=== PATIENT | male | born 1985 | race Two or more races ===

== ENCOUNTER 2018-12-24 15:36 | Inpatient (IN) | payer BC ==
[~2018-12-24] VITALS: Ht 177.8 cm; Wt 85.7 kg
--- NOTE | 2018-12-24 16:00 | NUR ---
CAME IN FOR FEVER THAT STARTED LAST NIGHT, L ABDOMINAL PAIN RADIATING TO BACK, AND GENERALIZED PAIN. TO ER BED 2, HOOKED TO MONITOR, CHANGED TO GOWN, PROVIDED W WARM BLANKET, PT AOX4 , NOT IN DISTRESS, AWAITING MD TIRADO
--- NOTE | 2018-12-24 16:12 | NUR ---
DR WAYNE AT BEDSIDE
[2018-12-24] MEDS ORDERED: KETOROLAC TROMETHAMINE INJ 30 MG/ML VIAL ONE (16:21)
[2018-12-24] MEDS ORDERED: ONDANSETRON HCL/PF 4 MG/2 ML VIAL ONE (16:21)
[2018-12-24] MEDS ORDERED: KETOROLAC TROMETHAMINE INJ 30 MG/ML VIAL IV ONE (16:30)
[2018-12-24] MEDS ORDERED: IV NS 0.9% 1,000 ML BAG IV ONE (16:30)
[2018-12-24] MEDS ORDERED: ONDANSETRON HCL/PF 4 MG/2 ML VIAL IVP ONE (16:30)
[2018-12-24 16:38] LABS: BASOPHILS # (AUTO) 0.2 /CMM (0.0-0.2); BASOPHILS % (AUTO) 1.7 % (0.0-2.0); HEMATOCRIT 41 % (39-51); HEMOGLOBIN 13.7 g/dL (13.5-17.5); LYMPHOCYTES # (AUTO) 1.3 /CMM (0.8-4.8); LYMPHOCYTES % (AUTO) 9.2 % (20.0-44.0); MEAN CORPUSCULAR HGB CONC 33 g/dl (31.0-36.0); MEAN CORPUSCULAR VOLUME 87 fL (80-96); MONOCYTES # (AUTO) 0.9 /CMM (0.1-1.30); MONOCYTES % (AUTO) 6.1 % (2.0-12.0); PLATELET COUNT (AUTO) 235 /CMM (150-450); RED BLOOD CELL COUNT(AUTO) 4.74 MIL/uL (4.5-6.0); WHITE BLOOD COUNT (AUTO) 14.5 K/uL (4.3-11.0)
[2018-12-24 16:42] LABS: CALCIUM, SERUM 8.9 mg/dL (8.5-10.1); CREATININE 1.3 mg/dL (0.6-1.3); POTASSIUM 3.8 mmol/L (3.5-5.1)
[2018-12-24 16:53] LABS: APPEARANCE,URINE Clear (CLEAR); BILIRUBIN,URINE SMALL (NEGATIVE); BLOOD, URINE Trace-intact Ery/uL (NEGATIVE); COLOR,URINE Amber (YELLOW); KETONES,URINE 15 (NEGATIVE); LEUKOCYTE ESTERASE ,URINE Negative (NEGATIVE); NITRITE, URINE Negative (NEGATIVE); PROTEIN,URINE 30 mg/dl (NEGATIVE); UGLUCOSE Negative (NEGATIVE)
[2018-12-24 16:54] LABS: ALBUMIN 3.7 g/dL (3.4-5.0); BILIRUBIN,DIRECT 0.3 mg/dL (0.0-0.2); BILIRUBIN,TOTAL 1.9 mg/dL (0.2-1.0)
--- NOTE | 2018-12-24 16:56 | NUR ---
PT REFUSED CT SCAN. MADE MD AWARE
[2018-12-24 17:08] LABS: BACTERIA,URINE Rare /HPF (None Seen); RBC,URINE 0-3 /HPF (0-2); SQUAMOUS EPITHELIAL CELL,UR Rare /HPF (None Seen); WBC,URINE 0-2 /HPF (0-3)
[2018-12-24 17:09] LABS: YEAST,URINE Few /HPF (None Seen)
--- NOTE | 2018-12-24 17:11 | NUR ---
Vance chawla in [facility] - 12/24/18 at 1718 by ARIK Patient discharged to home in stable condition. Written and verbal after care instructions given. Patient verbalizes understanding of instruction.
[2018-12-24] MEDS ORDERED: PIPERACILLIN /TAZOBACTAM 3.375 G in IV D5W 50 ML IV ONE (18:00)
--- NOTE | 2018-12-24 18:01 | NUR ---
CALLED TYSHAWN CONNOR NP PAGED.
--- NOTE | 2018-12-24 18:05 | NUR ---
CALLED NURSING SUP FOR BED
[2018-12-24] MEDS ORDERED: PIPERACILLIN /TAZOBACTAM 3.375 G VIAL IV ONE (18:08)
--- NOTE | 2018-12-24 18:28 | NUR ---
[facility] [facility]
--- NOTE | 2018-12-24 18:53 | NUR ---
REPORT GIVEN TO LATASHA SPAULDING OF MED-SURG
[2018-12-24] MEDS ORDERED: IV NS 0.9% 1,000 ML IV PRN (18:54)
[2018-12-24] MEDS ORDERED: ONDANSETRON HCL/PF 4 MG/2 ML VIAL IVP PRN (19:00)
[2018-12-24] MEDS ORDERED: MAG HYDROX/AL HYDROX/SIMETH 30 ML UDC PO PRN (19:00)
[2018-12-24] MEDS ORDERED: MAGNESIUM HYDROXIDE 30 ML UDC PO PRN (19:00)
[2018-12-24] MEDS ORDERED: ACETAMINOPHEN 325 MG TABLET PO PRN (19:00)
[2018-12-24] MEDS ORDERED: HYDROCODONE/APAP 5/325MG 1 EACH TABLET PO PRN (19:00)
[2018-12-24] MEDS ORDERED: MORPHINE SULFATE INJ 2 MG/ML DISP.SYRIN IV PRN (19:00)
[2018-12-24] MEDS ORDERED: Z GUARD REMEDY 2 OZ OINT TP PRN (19:00)
--- NOTE | 2018-12-24 19:00 | NUR ---
WHEELED OUT VIA GURNEY BY TECH IN STABLE CONDITION TO ROOM 328-2 [facility] UNIT. VITAL SIGNS STABLE. PT AOx4, AMBULATORY, SKIN CLEAR AND INTACT. NOT IN DISTRESS. ADMITTING DX: ABDOMINAL PAIN ADMITTING MD: TYSHAWN REPORT GIVEN TO LATASHA RN OF MS UNIT MRSA DONE MED RECONCILIATION DONE.
[2018-12-24 19:30] VITALS: BP 122/60
--- NOTE | 2018-12-24 19:45 | NUR ---
MS FIELD CROP FARMER NOTES RECEIVED FROM ER THIS 33 YO MALE,A/O X4,PER KAREN ,WITH CHIEF COMPLAINTS OF ON AND OFF ABDOMINAL PAIN STARTED 3-4 MONTHS AGO,WITH NAUSEA AND VOMITING.NO SKIN ISSUES,AMBULATORY,SALINE LOCK LEFT AC INTACT AND PATENT,INFUSING NS AT 75ML/HR RATE.DENIES ABDOMINAL PAIN AT THE MOMENT.NO NAUSEA.AFEBRILE.CALL LIGHT IN REACH.NEEDS ANTICIPATED.
[2018-12-24 20:00] VITALS: BP 122/60
--- NOTE | 2018-12-24 20:00 | NUR ---
MS RN NOTES GOT ORDERS FROM DR VILLAGRAN,PATIENT INSTRUCTED NPO ORDERED.
--- NOTE | 2018-12-24 20:27 | NUR ---
TEXTED DR. CHEN FOR MRI APPROVAL.
--- NOTE | 2018-12-24 20:35 | NUR ---
FOR MRI PATIENT HAS TO BE NPO AFTER MIDNIGHT.MRI WILL BE DONE TOMORROW AT 8.30 AM.NURSE IS AWARE OF IT.
[2018-12-24] MEDS: FAMOTIDINE (20 MG) 20 MG TABLET PO SCH (21:00)
[2018-12-25] MEDS: PIPERACILLIN /TAZOBACTAM 3.375 G in IV D5W 50 ML IV SCH ×2 (02:00→08:30)
[2018-12-25 06:20] LABS: BASOPHILS % (AUTO) 0.3 % (0.0-2.0); EOSINOPHILS % (AUTO) 1.3 % (0.0-6.0); HEMATOCRIT 41 % (39-51); HEMOGLOBIN 13.6 g/dL (13.5-17.5); LYMPHOCYTES # (AUTO) 1.8 /CMM (0.8-4.8); MEAN CORPUSCULAR HGB CONC 33 g/dl (31.0-36.0); MEAN CORPUSCULAR VOLUME 88 fL (80-96); MONOCYTES % (AUTO) 8.9 % (2.0-12.0); NEUTROPHILS # (AUTO) 7.8 /CMM (1.8-8.9); NEUTROPHILS % (AUTO) 72.5 % (43.0-81.0); PLATELET COUNT (AUTO) 216 /CMM (150-450); RED BLOOD CELL COUNT(AUTO) 4.64 MIL/uL (4.5-6.0); WHITE BLOOD COUNT (AUTO) 10.8 K/uL (4.3-11.0)
[2018-12-25 06:40] LABS: ALBUMIN 3.2 g/dL (3.4-5.0); BILIRUBIN,DIRECT 0.2 mg/dL (0.0-0.2); BILIRUBIN,TOTAL 2.2 mg/dL (0.2-1.0); CALCIUM, SERUM 8.4 mg/dL (8.5-10.1); CREATININE 1.3 mg/dL (0.6-1.3); MAGNESIUM 2.2 mg/dL (1.8-2.4); PHOSPHORUS 3.4 mg/dL (2.5-4.9); POTASSIUM 4.4 mmol/L (3.5-5.1); TOTAL PROTEIN, SERUM 6.4 g/dL (6.4-8.2)
[2018-12-25 06:48] LABS: THYROID STIMULATING HORMONE 1.336 uIU/mL (0.358-3.74)
--- NOTE | 2018-12-25 07:39 | NUR ---
MS RN NOTES RECEIVED PATIENT IN BED, ALERT AND AWAKE, ORIENTED X4. HOB ELEVATED. NO SOB OBSERVED. NPO AT THIS TIME. ON IV NS INFUSING @75ML/HR WITH LEFT AC #20 INTACT AND PATENT HORTENCIA WELL WITHOUT S/S OF COMPLICATIONS. BED IN LOWEST POSITION. CALL LIGHT WITHIN REACH. BED ALARM ON. ABLE TO VERBALIZE NEEDS. DENIES ANY C/O PAIN NOR DISCOMFORT AT THIS TIME.
--- NOTE | 2018-12-25 07:41 | NUR ---
MS RN NOTES NO SIGNIFICANT CHANGE IN STATUS.KEPT NPO FOR MRI ABDOMEN/PELVIS WITH OUT CONTRAST,CHECKLIST DONE.IVF IN PROGRESS.ENDORSED TO BRYANT SPAULDING FOR MANASA.
[2018-12-25 08:00] VITALS: BP 121/67
[2018-12-25] MEDS: FAMOTIDINE (20 MG) 20 MG TABLET PO SCH ×2 (08:30→21:14)
--- NOTE | 2018-12-25 08:40 | NUR ---
MS RN NOTES PATIENT PICKED UP BY [facility] AND TRANSPORTED PATIENT VIA WHEELCHAIR FOR MRI OF ABDOMEN/PELVIS WITHOUT CONTRAST. IV ZOSYN INFUSION HELD. PATIENT LEFT IN STABLE CONDITION.
--- NOTE | 2018-12-25 11:00 | NUR ---
MS RN NOTES PATIENT RETURNED FROM MRI. RESTING COMFORTABLY IN BED.
[2018-12-25] MEDS: PIPERACILLIN /TAZOBACTAM 3.375 G in IV D5W 100 ML IV SCH ×2 (13:48→22:05)
[2018-12-25 16:00] VITALS: BP 120/74
[2018-12-25] MEDS ORDERED: DICYCLOMINE HCL 10 MG CAPSULE PO PRN (17:30)
[2018-12-25] MEDS ORDERED: SIMETHICONE SUSP 40 MG/0.6 ML BOTTLE PO PRN (18:00)
--- NOTE | 2018-12-25 19:45 | NUR ---
MS RN NOTES RECEIVED RESTING COMFORTABLY ON BED,BREATHING REGULAR,NOT IN ANY FORM OF DISTRESS.IVF NS AT 75ML/HR RATE IN PROGRESS.DENIES ABDOMINAL PAIN.CALL LIGHT IN REACH,NEEDS ANTICIPATED.
--- NOTE | 2018-12-25 19:48 | NUR ---
MS RN CLOSING NOTES PATIENT IN BED, WATCHING TV. ALERT AND AWAKE, ORIENTED X4. HOB ELEVATED. NO SOB OBSERVED. ATE DINNER, HORTENCIA WELL. ON IV NS INFUSING @75ML/HR WITH LEFT AC #20 INTACT AND PATENT HORTENCIA WELL WITHOUT S/S OF COMPLICATIONS. BED IN LOWEST POSITION. CALL LIGHT WITHIN REACH. BED ALARM ON. ABLE TO VERBALIZE NEEDS. DENIES ANY C/O PAIN NOR DISCOMFORT AT THIS TIME.
[2018-12-25 20:00] VITALS: BP 103/50
[2018-12-25 21:05] LABS: OCCULT BLOOD STOOL NEGATIVE (NEGATIVE)
[2018-12-26] MEDS: PIPERACILLIN /TAZOBACTAM 3.375 G in IV D5W 100 ML IV SCH (05:47)
--- NOTE | 2018-12-26 06:34 | NUR ---
MS RN NOTES SLEEP WELL AT NIGHT,DENIES ABDOMINAL PAIN,IV ABX INFUSING OVER 4 HOURS.POSSIBLE D/C TODAY.IN NO ACUTE DISTRESS.WILL ENDORSE TO DAY NURSE FOR MANASA.
--- NOTE | 2018-12-26 07:15 | NUR ---
MS RN OPENING NOTES RECEIVED PT IN BED, AWAKE, A/O X4.TOLERATING RA, WITH NO ACUTE RESPIRATORY DISTRESS NOTED.PT DENIES ANY PAIN OR DISCOMFORT AT THIS TIME. PT CONCERNED ABOUT GETTING DISCHARGED TODAY AND THE NAMED OF 2DOCTORS/SPECIALIST TO FOLLOW UP AFTER DISCHARGE. PT TO UPDATE REGARDING PLAN OF DISCHARGE AFTER MD'S MORNING ROUNDS. PIV TO RFA G20 WITH NS AT 75ML/HR WITH PB IV ZOSYN RUNNING AT THIS TIME, INATCT AND INFUSING WELL. PT KEPT COMFORTABLE. PT'S BED IN LOWEST, LOCKED POSITION WITH SR X2. CALL LIGHT KEPT WITHIN REACH WILL CONTINUE PLAN OF CARE.
[2018-12-26 07:20] LABS: BASOPHILS # (AUTO) 0.1 /CMM (0.0-0.2); BASOPHILS % (AUTO) 1.2 % (0.0-2.0); EOSINOPHILS % (AUTO) 2.6 % (0.0-6.0); HEMATOCRIT 42 % (39-51); HEMOGLOBIN 14.1 g/dL (13.5-17.5); LYMPHOCYTES # (AUTO) 1.3 /CMM (0.8-4.8); LYMPHOCYTES % (AUTO) 17.3 % (20.0-44.0); MEAN CORPUSCULAR HGB CONC 33 g/dl (31.0-36.0); MEAN CORPUSCULAR VOLUME 88 fL (80-96); MONOCYTES # (AUTO) 0.6 /CMM (0.1-1.30); MONOCYTES % (AUTO) 8.3 % (2.0-12.0); NEUTROPHILS # (AUTO) 5.3 /CMM (1.8-8.9); NEUTROPHILS % (AUTO) 70.6 % (43.0-81.0); PLATELET COUNT (AUTO) 223 /CMM (150-450); WHITE BLOOD COUNT (AUTO) 7.5 K/uL (4.3-11.0)
[2018-12-26 07:52] LABS: ALBUMIN 3.3 g/dL (3.4-5.0); BILIRUBIN,DIRECT 0.2 mg/dL (0.0-0.2); BILIRUBIN,TOTAL 0.9 mg/dL (0.2-1.0); CALCIUM, SERUM 9.1 mg/dL (8.5-10.1); CREATININE 1.3 mg/dL (0.6-1.3); POTASSIUM 4.7 mmol/L (3.5-5.1); TOTAL PROTEIN, SERUM 6.9 g/dL (6.4-8.2)
[2018-12-26 08:00] VITALS: BP 115/59
[2018-12-26] MEDS: FAMOTIDINE (20 MG) 20 MG TABLET PO SCH (09:00)
[2018-12-26] MEDS ORDERED: METR500T PO (10:26)
[2018-12-26] MEDS ORDERED: LEVO750T46 PO (10:26)
--- NOTE | 2018-12-26 11:53 | NUR ---
MS SPAULDINGFOREST FIRE WARDEN NOTES PT TO DISCHARGE HOME. PT A/O X4 AND AMBULATORY. TOLERATING RA, WITH NO ACUTE RESPIRATORY DISTRESS NOTED. PT DENIES ANY PAIN OR DISCOMFORT AT THE TIME OF DISCHARGE. PRESCRIPTION OF ANTIBIOTICS AND F/U MD INFORMATION GIVEN TO PT. PT REVIEWED AND SIGNED DISCHARGE INSTRUCTIONS AND INVENTORY LIST. ALL BELONGINGS WITH THE PT. PIV TO RFA REMOVED AND APPLIED DRY DRESSING. SKIN INTACT, NO PICTURES TAKEN AND FILED. ALL NEEDS AND CARE ATTENDED. FOOD SERVICE WORKER/CN AND CN/MANINDER AWARE OF DISCHARGE. PT LEFT THE UNIT AT 1154, ESCORTED BY FRANCISCO TO THE LOBBY. Addendum: 12/26/18 at 1159 by AARON NAYAK RN PT LEFT THE UNIT AT 1145 NOT 1154.
[2018-12-30 13:10] LABS: *ANCANTIMYELOPEROXIDASE (MPO) <9.0 U/mL (0.0-9.0); *ANCANTIPROTEINASE 3 (PR-3) AB <3.5 U/mL (0.0-3.5)
[2019-01-01 15:06] LABS: *ANCA ATYPICAL p-ANCA <1:20 titer (Neg:<1:20); *ANCA CYTOPLASMIC (C-ANCA) <1:20 titer (Neg:<1:20); *ANCA PERINUCLEAR (P-ANCA) <1:20 titer (Neg:<1:20)
== END 2018-12-26 11:40 | disposition home or self-care (01) | DRG 872 ==
LOC: ER 15:44 → MED 18:48
PROVIDERS: ADMIT Nurse Practitioner Acute Care; ATTEND Nurse Practitioner Acute Care
DX: A41.9 Sepsis, unspecified organism (principal); A09 Infectious gastroenteritis and colitis, unspecified; D72.829 Elevated white blood cell count, unspecified; E80.6 Other disorders of bilirubin metabolism; F12.90 Cannabis use, unspecified, uncomplicated; F10.10 Alcohol abuse, uncomplicated; Y90.0 Blood alcohol level of less than 20 mg/100 ml; K58.0 Irritable bowel syndrome with diarrhea
CPT/HCPCS: 36415; 71045-TC; 72195-TC; 74181-TC; 76705-TC; 80048-TC; 80061-TC; 80074; 80076-TC; 80305; 81000-TC; 82272-TC; 83520; 83605-TC; 83690-TC; 83735-TC; 84100-TC; 84443-TC; 85025-TC; 85652-TC; 86140-TC; 86256; 87040-TC; 87081-TC; G0378; G0480; J1885; J2405; J2543; J7030; J7060

== ENCOUNTER 2019-04-01 17:09 | Emergency (ER) | payer BC ==
[~2019-04-01] VITALS: Ht 180.3 cm; Wt 83.9 kg
[~2019-04-01 17:09] MED LIST: LEVO750T46 PO; METR500T PO
--- NOTE | 2019-04-01 17:30 | NUR ---
patient arrived at unit ambulatory. a/o x 3, no acute distress. with c/o constipation, anal pain, burning/itching on and off x 3 months. patient accompanied to bed and connected to monitor. will monitor accordingly
--- NOTE | 2019-04-01 18:00 | NUR ---
dr terrell at bedside. rectal swab done. specimen sent to lab
--- NOTE | 2019-04-01 18:11 | NUR ---
Lab notified regarding rectal swab specimen, per Lab, Chlamydia/Gonorrhea needs to be ordered under misc orders, and to add test code [id number]. dr Song made aware and verbalized she will add it in the order
[2019-04-01] MEDS ORDERED: AZITHROMYCIN 250 MG TABLET PO ONE (18:30)
[2019-04-01] MEDS ORDERED: CEFTRIAXONE 500 MG VIAL IM ONE (18:30)
[2019-04-01] MEDS ORDERED: CEFTRIAXONE 500 MG VIAL ONE (18:33)
[2019-04-01] MEDS ORDERED: AZITHROMYCIN 250 MG TABLET ONE (18:33)
[2019-04-01] MEDS ORDERED: LIDOCAINE /MPF 1% VIAL 5 ML VIAL ONE (18:36)
--- NOTE | 2019-04-01 19:12 | NUR ---
DPatient discharged to home in stable condition. Written and verbal after care instructions given. Patient verbalizes understanding of instruction.
[2019-04-01 19:13] VITALS: BP 138/70
== END 2019-04-01 19:13 | disposition home or self-care (01) ==
LOC: ER 17:24
DX: L29.8 Other pruritus (principal); Z60.2 Problems related to living alone; Z79.899 Other long term (current) drug therapy
CPT/HCPCS: 96372; 99283; J0696; J3490